=== PATIENT | female | born 1935 | race Caucasian/White ===

== ENCOUNTER 2017-08-15 13:20 | Emergency (ER) | payer MEDICARE, MEDICAID ==
[~2017-08-15] VITALS: Ht 157.5 cm; Wt 100.0 kg
[~2017-08-15 13:20] MED LIST: AMIT-106 PO; ATOR20TA66 PO; CEPH500C2 PO; DONE5TAB3 PO; ESOM40CA PO; FURO40TA4 PO; METO25TA6 PO; ONDA8TAB6 PO; PREG75CA30 PO; RIVA15TA PO; SPIR25TA3 PO; [UNRECOGNIZED DRUG - CODE] PO
[2017-08-15] MEDS ORDERED: magnesium citrate 296ml oral solution PO ONE (13:50)
[2017-08-15] MEDS ORDERED: normal saline 1000ML IV soln IVB ONE (13:50)
[2017-08-15 14:15] LABS: BASOPHILS # (AUTO) 0.1 X10'3 (0-0.2); BASOPHILS % (AUTO) 0.5 % (0-1); EOSINOPHILS # (AUTO) 0.4 X10'3 (0-0.9); EOSINOPHILS % (AUTO) 3.7 % (0-6); HEMATOCRIT 37.6 % (35.0-45.0); HEMOGLOBIN 12.5 g/dl (12.0-16.0); LYMPHOCYTES # (AUTO) 1.4 X10'3 (1.1-4.8); LYMPHOCYTES % (AUTO) 13.5 % (21-51); MEAN CORPUSCULAR HEMOGLOBIN 30.7 PG (27.0-31.0); MEAN CORPUSCULAR HGB CONC 33.4 % (33.0-36.5); MEAN CORPUSCULAR VOLUME 91.8 FL (78-98); MEAN PLATELET VOLUME 7.5 FL (7.4-10.4); MONOCYTES # (AUTO) 0.7 X10'3 (0-0.9); MONOCYTES % (AUTO) 6.8 % (2-12); NEUTROPHILS # (AUTO) 7.6 X10'3 (1.8-7.7); NEUTROPHILS % (AUTO) 75.5 % (42-75); PLATELET COUNT 165 X10'3 (140-440); RED BLOOD COUNT 4.09 X10'6 (4.20-5.60); RED CELL DISTRIBUTION WIDTH 14.2 % (11.5-14.5); WHITE BLOOD COUNT 10.1 X10'3 (4.5-11.0)
[2017-08-15 14:33] LABS: ALANINE AMINOTRANSFERASE 12 U/L (12-78); ALBUMIN 3.3 G/DL (3.4-5.0); ALBUMIN/GLOBULIN RATIO 1.1 (1.1-1.5); ALKALINE PHOSPHATASE 155 IU/L (46-116); ANION GAP 6 (8-16); ASPARTATE AMINO TRANSFERASE 14 U/L (10-37); BILIRUBIN,TOTAL 0.6 MG/DL (0.1-1.0); BLOOD UREA NITROGEN 6 MG/DL (7-18); BUN/CREATININE RATIO 6.2 (6.6-38.0); CALCIUM 8.9 MG/DL (8.5-10.1); CHLORIDE 99 MMOL/L (99-107); CREATININE 0.97 MG/DL (0.40-0.90); GLUCOSE 85 MG/DL (70-104); POTASSIUM 4.7 MMOL/L (3.5-5.1); SODIUM 135 MMOL/L (135-145); TOTAL CARBON DIOXIDE 30.5 MMOL/L (24-32); TOTAL PROTEIN 6.4 G/DL (6.4-8.2); eGFR 55 ML/MIN
[2017-08-15 15:00] LABS: CLARITY,URINE CLEAR (Clear); COLOR,URINE STRAW (Yellow); GLUCOSE, URINE NEGATIVE (Neg); KETONES,URINE NEGATIVE (Neg); LEUKOCYTE ESTERASE ,URINE NEGATIVE (Neg); NITRITES, URINE NEGATIVE (Neg); OCCULT BLOOD,URINE NEGATIVE (Neg); PH,URINE 6.5 (4.8-8.0); PROTEIN,URINE NEGATIVE (Neg); UROBILINOGEN,URINE 0.2 E.U/dL (0.2-1.0)
[2017-08-15 15:02] LABS: UA COLLECTION TYPE STRAIGHT CATH
[2017-08-15 15:55] VITALS: BP 154/74
[2017-08-15] MEDS ORDERED: LIDOcaine 2% 10ml TOPICAL JELLY (Urojet) MM ONE (16:15)
== END 2017-08-15 17:35 | disposition home or self-care (01) ==
LOC: ER 13:21
DX: K59.00 Constipation, unspecified (principal); I25.10 Atherosclerotic heart disease of native coronary artery without angina pectoris; E78.00 Pure hypercholesterolemia, unspecified; I10 Essential (primary) hypertension; G89.29 Other chronic pain; Z86.711 Personal history of pulmonary embolism; Z90.710 Acquired absence of both cervix and uterus; Z98.890 Other specified postprocedural states; Z60.2 Problems related to living alone; Z95.0 Presence of cardiac pacemaker; Z88.2 Allergy status to sulfonamides; Z79.899 Other long term (current) drug therapy
CPT/HCPCS: 36415; 80053; 81003; 85025; 99284; J7030

== ENCOUNTER 2018-06-25 13:38 | Day surgery (SDC) | payer MEDICARE, MEDICAID ==
[2018-06-23 13:56] LABS: BASOPHILS # (AUTO) 0.2 X10'3 (0-0.2); BASOPHILS % (AUTO) 1.9 % (0-1); EOSINOPHILS # (AUTO) 0.3 X10'3 (0-0.9); EOSINOPHILS % (AUTO) 3.7 % (0-6); HEMATOCRIT 37.7 % (35.0-45.0); HEMOGLOBIN 11.9 g/dl (12.0-16.0); LYMPHOCYTES # (AUTO) 1.1 X10'3 (1.1-4.8); LYMPHOCYTES % (AUTO) 14.2 % (21-51); MEAN CORPUSCULAR HGB CONC 31.5 g/dL (33.0-36.5); MEAN CORPUSCULAR VOLUME 82.5 FL (78-98); MONOCYTES # (AUTO) 0.7 X10'3 (0-0.9); MONOCYTES % (AUTO) 8.8 % (2-12); NEUTROPHILS # (AUTO) 5.7 X10'3 (1.8-7.7); NEUTROPHILS % (AUTO) 71.4 % (42-75); PLATELET COUNT 248 X10'3 (140-440); RED BLOOD COUNT 4.56 X10'6 (4.20-5.60); RED CELL DISTRIBUTION WIDTH 16.2 % (11.5-14.5)
[2018-06-23 13:59] LABS: ALBUMIN 3.2 G/DL (3.4-5.0); ANION GAP 9 (8-16); BLOOD UREA NITROGEN 11 MG/DL (7-18); CALCIUM 8.9 MG/DL (8.5-10.1); CHLORIDE 105 MMOL/L (99-107); CREATININE 1.22 MG/DL (0.40-0.90); GLUCOSE 139 MG/DL (70-104); POTASSIUM 4.3 MMOL/L (3.5-5.1); SODIUM 141 MMOL/L (135-145); TOTAL CARBON DIOXIDE 27.4 MMOL/L (24-32); eGFR 42 ML/MIN
[2018-06-23 14:01] LABS: INR 1.2 INR; PARTIAL THROMBOPLASTIN TIME 31 SECONDS (22-32); PROTHROMBIN TIME 11.7 SECONDS (9.0-12.0)
[~2018-06-25] VITALS: Ht 152.4 cm; Wt 107.0 kg
[~2018-06-25 13:38] MED LIST changes: -SPIR25TA3 PO; +SPIR25TA5 PO
[2018-06-25] MEDS ORDERED: LORazepam 0.5 MG tablet PO ONE (14:35)
[2018-06-25] MEDS ORDERED: normal saline 1000ml 1,000 ML IV SCH (14:35)
[2018-06-25] MEDS ORDERED: diphenhydrAMINE 25mg capsule PO ONE (14:35)
[2018-06-25] MEDS ORDERED: DIGO125T PO (14:41)
[2018-06-25] MEDS ORDERED: MULT-227 PO (14:41)
[2018-06-25] MEDS ORDERED: LEVO50TA8 PO (14:53)
[2018-06-25] MEDS ORDERED: POTA8TAB3 PO (14:53)
[2018-06-25] MEDS ORDERED: MEMA1CAP3 PO (14:55)
[2018-06-25] MEDS ORDERED: ENOX100S3 SQ (14:55)
[2018-06-25 15:45] VITALS: BP 159/102
[2018-06-25] MEDS ORDERED: fentaNYL/PF 50MCG/1 ML 2ML syringe ONE (16:07)
[2018-06-25] MEDS ORDERED: midazolam 2 mg/2 ml injection ONE (16:07)
[2018-06-25] MEDS ORDERED: LIDOcaine 1% (10mg/ml)w/preservative injection 20ml MDV ONE (16:07)
[2018-06-25] MEDS ORDERED: iohexol 350MG/ML 100ml bottle IV ONE (16:08)
[2018-06-25 17:09] VITALS: BP 106/76
[2018-06-25] MEDS ORDERED: OXAZEpam 15mg capsule PO PRN (17:20)
[2018-06-25] MEDS ORDERED: proCHLORperazine 10 MG/2 ml inj IV PRN (17:25)
[2018-06-25] MEDS ORDERED: ondansetron/PF 4mg/2ml inj IV PRN (17:25)
[2018-06-25 18:09] VITALS: BP 110/84
[2018-06-25 18:25] VITALS: BP 127/107
[2018-06-25 18:53] VITALS: BP 129/96
== END 2018-06-25 19:35 | disposition home or self-care (01) ==
LOC: SSTAY O 13:38
PROVIDERS: ATTEND Internal Medicine Interventional Cardiology
DX: I25.10 Atherosclerotic heart disease of native coronary artery without angina pectoris (principal); Z23 Encounter for immunization; J44.9 Chronic obstructive pulmonary disease, unspecified; I48.91 Unspecified atrial fibrillation; I50.9 Heart failure, unspecified; N18.9 Chronic kidney disease, unspecified; I13.0 Hypertensive heart and chronic kidney disease with heart failure and stage 1 through stage 4 chronic kidney disease, or unspecified chronic kidney disease; Z86.718 Personal history of other venous thrombosis and embolism
CPT/HCPCS: 36415; 80048; 85025; 85610; 85730; 90471; 90662; 93458; 99152; A6257; J1644; J2001; J2250; J3010; J7030; Q0163; Q9967; A4620; C1769